=== PATIENT | female | born 1955 | race Caucasian/White ===

== ENCOUNTER 2024-01-26 14:20 | Inpatient (IN) | payer MEDICARE, OTHER ==
[2024-01-26 15:51] LABS: BASOPHILS ABSOLUTE AUTO 0.06 K/uL (0.00-0.10); BASOPHILS PERCENT AUTO 0.4 % (0.1-1.3); EOSINOPHILS PERCENT AUTO 1.4 % (0.0-5.4); HEMATOCRIT 43.4 % (34.3-46.0); HEMOGLOBIN 14.8 g/dL (11.2-15.5); IMMATURE GRAN ABSOLUTE AUTO 0.09 K/uL (0.00-0.23); IMMATURE GRAN PERCENT AUTO 0.6 % (0.0-0.7); LYMPHOCYTES ABSOLUTE AUTO 1.47 K/uL (0.8-3.3); LYMPHOCYTES PERCENT AUTO 10.1 % (11.4-47.7); MEAN CORPUSCULAR HEMOGLOBIN 29.2 pg (31.6-35.5); MEAN CORPUSCULAR HGB CONC 34.1 g/dL (31.6-35.5); MEAN CORPUSCULAR VOLUME 85.8 fL (81.4-99.0); MONOCYTES ABSOLUTE AUTO 1.01 K/uL (0.20-0.90); MONOCYTES PERCENT AUTO 6.9 % (3.3-12.6); NEUTROPHILS ABSOLUTE AUTO 11.77 K/uL (1.0-7.6); NEUTROPHILS PERCENT AUTO 80.6 % (40.0-78.1); PLATELET COUNT,PLT 331 K/uL (130-375); RED BLOOD CELL COUNT 5.06 M/uL (3.77-5.24); WHITE BLOOD CELL COUNT,WBC 14.6 K/uL (3.2-11.0)
[2024-01-26 16:01] LABS: A/G RATIO 0.8 (1.2-2.2); ALANINE AMINOTRANSFERASE,ALT 43 U/L (12-78); ALBUMIN 3.2 g/dL (3.4-5.0); ALKALINE PHOSPHATASE 125 U/L (46-116); ASPARTATE AMNIOTRANSFERASE,AST 24 U/L (15-37); BILIRUBIN TOTAL 0.6 mg/dL (0.2-1.0); BLOOD UREA NITROGEN,BUN 23 mg/dL (7-18); C-REACTIVE PROTEIN 18.29 mg/dL (<0.50); CALCIUM 9.5 mg/dL (8.5-10.1); CARBON DIOXIDE,CO2 24 mmol/L (21-32); CHLORIDE,CL 104 mmol/L (100-108); EST CRCL DRUG DOSING (CG) 57.42 mL/min; ESTIMATED GFR 61 mL/min (>60); GLUCOSE RANDOM 129 mg/dL (74-106); POTASSIUM,K 3.9 mmol/L (3.6-5.2); PROTEIN TOTAL,TP 7.4 g/dL (6.4-8.2); SODIUM,NA 137 mmol/L (140-148)
[2024-01-26 16:02] LABS: ANION GAP 12.9 mmol/L (5.0-14.0)
[2024-01-26] MEDS: Sodium Chloride 0.9% 1,000 ML IV ONE (16:04)
[2024-01-26] MEDS: Iopamidol 612 MG/ML 100 ML Bottle IV SCH (16:29)
[2024-01-26] MEDS: Sodium Chloride 0.9% 80 ML IV SCH (16:29)
[2024-01-26] MEDS: Sodium Chloride 0.9% 10 ML Syringe FLUSH ONE (16:29)
[2024-01-26] MEDS: HYDROmorphone 0.5 MG/0.5 ML Syringe IVPUSH ONE (17:51)
[2024-01-26] MEDS: Piperacillin/Tazobactam 4.5 GM in Sodium Chloride 0.9% 100 ML IV ONE (17:51)
[2024-01-26] MEDS: ALPRAZolam 0.25 MG Tab PO ONE (18:17)
[2024-01-26] MEDS ORDERED: Ondansetron 4 MG Tab.DIS PO PRN (20:19)
[2024-01-26] MEDS ORDERED: Ondansetron 4 MG/2 ML SDV IV PRN (20:19)
[2024-01-26] MEDS ORDERED: Melatonin 3 MG Tab PO PRN (20:19)
[2024-01-26] MEDS ORDERED: Naloxone 0.4 MG/ML SDV IVPUSH PRN (20:19)
[2024-01-26] MEDS: Sodium Chloride 0.9% 1,000 ML IV SCH (20:39)
[2024-01-26] MEDS: Pantoprazole 40 MG Vial IVPUSH SCH (20:45)
[2024-01-26] MEDS: Piperacillin/Tazobactam 4.5 GM in Sodium Chloride 0.9% 100 ML IV SCH (21:43)
[2024-01-26] MEDS: HYDROmorphone 1 MG/ML Syringe IVPUSH PRN (21:54)
[2024-01-26] MEDS: atorvaSTATin 20 MG Tab PO SCH (21:57)
[2024-01-26] MEDS: Verapamil 120 MG Tab.ER PO SCH (21:57)
[2024-01-27 05:12] LABS: HEMOGLOBIN 12.8 g/dL (11.2-15.5); MEAN CORPUSCULAR HEMOGLOBIN 29.3 pg (31.6-35.5); MEAN CORPUSCULAR HGB CONC 33.7 g/dL (31.6-35.5); RED BLOOD CELL COUNT 4.37 M/uL (3.77-5.24); WHITE BLOOD CELL COUNT,WBC 9.8 K/uL (3.2-11.0)
[2024-01-27 05:27] LABS: CALCIUM 8.7 mg/dL (8.5-10.1); CREATININE 0.7 mg/dL (0.6-1.0); EST CRCL DRUG DOSING (CG) 83.4 mL/min; POTASSIUM,K 3.4 mmol/L (3.6-5.2)
[2024-01-27 05:38] LABS: ANION GAP 13.4 mmol/L (5.0-14.0)
[2024-01-27] MEDS: Fenofibrate,Micronized 67 MG Cap PO SCH (08:47)
[2024-01-27] MEDS: Meloxicam 7.5 MG Tab PO SCH (08:47)
[2024-01-27] MEDS: Potassium Chloride 20 MEQ Tab.ER PO ONE (08:47)
[2024-01-27] MEDS: Metoprolol Tartrate 50 MG Tab PO SCH (08:48)
[2024-01-27] MEDS: FLUoxetine 20 MG Cap PO SCH (08:48)
[2024-01-27] MEDS: buPROPion 150 MG Tab.ER PO SCH (08:48)
[2024-01-27] MEDS ORDERED: HYDROmorphone 0.5 MG/0.5 ML Syringe IVPUSH PRN (09:00)
[2024-01-27] MEDS: Sodium Chloride 0.9% 1,000 ML IV SCH (13:36)
[2024-01-27] MEDS: Piperacillin/Tazobactam/Dext 4.5 GM in Premix Bag 1 BAG IV SCH (13:36)
[2024-01-27] MEDS: Acetaminophen/oxyCODONE 325-5 MG Tab PO PRN (14:47)
[2024-01-27] MEDS ORDERED: Pantoprazole 40 MG Vial IVPUSH SCH (16:00)
[2024-01-27] MEDS: Pantoprazole 40 MG Tab.CR PO SCH (21:17)
[2024-01-28] MEDS: LORazepam 0.5 MG Tab PO PRN (14:41)
[2024-01-28 15:47] LABS: APPEARANCE,URINE CLEAR (CLEAR); BILIRUBIN,URINE NEGATIVE (NEGATIVE); COLOR,URINE YELLOW (YELLOW); GLUCOSE,URINE NEGATIVE (NEGATIVE); KETONES,URINE NEGATIVE (NEGATIVE); LEUKOCYTE ESTERASE,URINE NEGATIVE (NEGATIVE); NITRITE,URINE NEGATIVE (NEGATIVE); OCCULT BLOOD,URINE TRACE-LYSED (NEGATIVE); PH,URINE 5.5 (5.0-8.0); PROTEIN,URINE NEGATIVE (NEGATIVE)
[2024-01-28 16:02] LABS: AMORPHOUS SEDIMENT,URINE NOT SEEN; BACTERIA,URINE RARE; EPITHELIAL CELLS,URINE RARE; MUCUS,URINE RARE; RBC,URINE 0-5 (0-5); WBC,URINE NOT SEEN (0-5)
[2024-01-28] MEDS: Acetaminophen 325 MG Tab PO PRN (21:04)
[2024-01-29 05:19] LABS: ANION GAP 11.7 mmol/L (5.0-14.0); CALCIUM 9.3 mg/dL (8.5-10.1); CREATININE 0.7 mg/dL (0.6-1.0); EST CRCL DRUG DOSING (CG) 83.4 mL/min; POTASSIUM,K 3.6 mmol/L (3.6-5.2)
[2024-01-30] MEDS: Sodium Chloride 0.9% 10 ML Syringe FLUSH ONE (11:52)
[2024-01-30] MEDS: Iopamidol 612 MG/ML 100 ML Bottle IV ONE (11:52)
[2024-01-30] MEDS: Sodium Chloride 0.9% 100 ML IV ONE (11:53)
[2024-01-30] MEDS: Lactobacillus Rhamnosus GG (Probiotic) Cap PO SCH (15:54)
[2024-01-30] MEDS: Ciprofloxacin in D5W 400 MG in Premix Bag 1 BAG IV SCH (16:39)
[2024-01-30] MEDS: metroNIDAZOLE/Normal Saline 500 MG in Premix Bag 1 BAG IV SCH (17:45)
[2024-01-31 05:06] LABS: HEMATOCRIT 40.7 % (34.3-46.0); HEMOGLOBIN 13.9 g/dL (11.2-15.5); MEAN CORPUSCULAR HEMOGLOBIN 29.1 pg (31.6-35.5); MEAN CORPUSCULAR HGB CONC 34.2 g/dL (31.6-35.5); MEAN CORPUSCULAR VOLUME 85.3 fL (81.4-99.0); RED BLOOD CELL COUNT 4.77 M/uL (3.77-5.24); WHITE BLOOD CELL COUNT,WBC 8.2 K/uL (3.2-11.0)
[2024-01-31 05:30] LABS: ANION GAP 9.9 mmol/L (5.0-14.0); CALCIUM 9.2 mg/dL (8.5-10.1); CREATININE 0.8 mg/dL (0.6-1.0); EST CRCL DRUG DOSING (CG) 72.98 mL/min; POTASSIUM,K 3.7 mmol/L (3.6-5.2)
== END 2024-02-01 12:40 | disposition home or self-care (01) | DRG 392 ==
LOC: JP.ED 14:20 → JP.MS 19:45 → UNDOADMIN 19:45 → JP.MS 20:19 → UNDODISIN 02-01 12:40
PROVIDERS: ADMIT Registered Nurse; ATTEND Hospitalist
DX: K57.20 Diverticulitis of large intestine with perforation and abscess without bleeding (principal); E78.00 Pure hypercholesterolemia, unspecified; I10 Essential (primary) hypertension; F41.9 Anxiety disorder, unspecified; F32.A Depression, unspecified; Z96.642 Presence of left artificial hip joint; D72.829 Elevated white blood cell count, unspecified; G47.34 Idiopathic sleep related nonobstructive alveolar hypoventilation; Z98.49 Cataract extraction status, unspecified eye; Z79.899 Other long term (current) drug therapy; Z98.890 Other specified postprocedural states; Z98.891 History of uterine scar from previous surgery; Z87.891 Personal history of nicotine dependence
CPT/HCPCS: 36415; 74177; 80053; 83605; 85025; 86140; 87040 ×2; 93005; 93010; 96361; 96365; 96375; 99285 ×2; A9270; J1170; J2543; J3490 ×3; J7030; Q9967; 80048; 81001; 85027; 99222; 99231; 99232; 99239; C9113; J0744; J1836